=== PATIENT | male | born 1945 | race Caucasian/White ===

== ENCOUNTER 2017-05-05 12:19 | Inpatient (IN) ==
--- NOTE | 2017-05-05 09:59 | Discharge Summary ---
Date of Encounter: 05/08/17 Time of Encounter: 07:31 - Discharge Diagnosis (1) Arthritis of right knee Priority: Primary Status: Chronic (2) Hypertension Priority: Secondary Status: Chronic Qualifiers: Hypertension type: unspecified Qualified Code(s): I10 - Essential (primary ) hypertension (3) Hyperlipidemia Priority: Secondary Status: Chronic Qualifiers: Hyperlipidemia type: unspecified Qualified Code(s): E78.5 - Hyperlipidemia , unspecified - Discharge Medications Home Medications: Aspirin Enteric Coated [Aspirin EC] 325 mg PO BID #20 tablet.dr 05/05/17 [Rx] Atorvastatin [Lipitor] 40 mg PO HS 05/05/17 [History] Carvedilol [Coreg] 6.25 mg PO BID 05/05/17 [History] Ergocalciferol (VITAMIN D2) [Vitamin D] 400 unit PO DAILY 05/05/17 [History] Lisinopril-HCTZ 20-12.5 [Prinzide 20-12.5] 1 tab PO DAILY 05/05/17 [History] OxyCODONE Immed Rel [Roxicodone 5 MG] 5 mg PO Q4HR PRN #24 tablet 05/05/17 [Rx] cloNIDine HCl [CloNIDine HCl] 0.2 mg PO HS 05/05/17 [History] Allergies/Adverse Reactions: 3 Allergy/AdvReac Type Severity Reaction Status Date / Time No Known Allergies Allergy Verified 05/05/17 12:51 Primary care physician: Mann Gore - Patient Status Disposition: Home, Self-Care Condition: Good Functional capacity at discharge: uses cane/walker Overall status at discharge: patient is progressing back to baseline - Discharge Instructions Follow Up With: Joanna Marie PAC [Physician Rivet Machine Operator] - 05/12/17 11:15 am Mann Gore DO [Primary Care Provider] - Additional Instructions: Discharge Instructions: Total Knee Replacement Please call [facility] ([phone]), your Primary Care Physician, or report to the Emergency Room if you have any of the following symptoms: Nausea, vomiting, fever greater that 101.5, swelling, chest pain, shortness of breath, increased pain/redness/drainage/odor for your incision site, numbness/ tingling, or any other concerning symptoms. ACTIVITY:Weight-bearing as tolerated. You may progress off support (crutches or walker) as tolerated. MEDICATIONS: Upon discharge resume your home medications. Take all the medications as prescribed. Take a stool softener if taking narcotic pain medications. Stool softeners are only effective if you drink enough fluids. Drink 6-8 glass of water or fluids a day, unless this is not allowed for another health problem. Despite using stool softeners, if you haven't had a bowel movement in 3 days, please switch to a gentle laxative. Gentle laxatives are sold over the counter. You should have a bowel movement within 24 hours, if not call the office. You will be discharged from the hospital with a prescription for pain medication. You are encouraged to decrease the use of narcotic pain medication as tolerated. Should you require a refill, please call the office. [facility] prescribes narcotic pain medication for only 4-6 weeks after surgery. If you require pain medication beyond this time period, you may be referred to your Primary Care Physician or to the Pain Clinic for further evaluation. Plan ahead for refills on pain medication as many narcotics either need to be picked up at the office or mailed. It is best to call 48-72 hours in advance of needing a prescription refill so you don't run out of medication. To help control the post-operative pain, you may take NSAIDs (Aleve,Advil, Motrin, Ibuprofen, Naprosyn) or Tylenol as prescribed on the bottle in addition to the pain medication. ANTICOAGULATION (blood thinners): Continue your Aspirin, Lovenox or Coumadin as prescribed to help prevent a blood clot in the leg or in the lungs. As long as your incision remains dry and you tolerate the NSAIDs (Aleve, Advil, Motrin, ibuprofen, naprosyn), it is OK to use the NSAIDS while you are taking your anticoagulation medication. Should your incision start to drain, stop the NSAID and contact our office. Common symptoms of blood clot in the legs include: localized pain, swelling, calf tenderness, redness or discoloration of the skin. Blood clot in the lung symptoms include: shortness of breath, rapid pulse, sweating, and chest pain that worsens with deep breathing, coughing up blood, lightheadedness, feelings of anxiety. If you experience any of these symptoms notify your physician immediately, go to the emergency room, or if having trouble breathing, call [phone]. WOUND CARE: Leave the dressing on for 7 to 10days. You may change the dressing if it becomes saturated greater than 50%. Do not get the dressing wet at anytime. Wash your hands with antibacterial soap, rinse and dry prior to any wound care. If you have virginia the visiting nurse or rehab facility can remove the stapes 10-14 days after surgery and place steri-strips across the wound. Leave the steri-strips in place until they fall off on their won. You may let water from the shower run on top of the steri-strips. If you do not have a visiting nurse or rehab facility, you will need to return to the office at 10-14 days for the virginia to be removed. If you have itching or redness around the dressing call the office. FOLLOW-UP: Please follow up with your surgeon in the orthopedic clinic in 4 weeks from the day of surgery. If you have virginia that need to be removed, you will need to come back to the office in 10-14 days from the day of surgery. - Hospital Course Hospital course: Mr. Barajas is a 71 year old male Status post right total knee replacement. Patient discharged on May 07.The patient had an uneventful postoperative course. They received antibiotics and physical therapy and were discharged in stable condition. There will follow-up in the office in 2 weeks. - Time Spent with Patient Total time spent providing and/or coordinating discharge services:
[2017-05-05] MEDS ORDERED: Lidocaine -MPF 1% 2 ML VIAL ID ONE (12:37)
[2017-05-05] MEDS ORDERED: CeFAZolin Syr 2,000MG/20 ML 2,000 MG/20 ML SYRINGE IVPB ONE (12:37)
[2017-05-05] MEDS ORDERED: Plasma-Lyte A (PH 7.4) 1,000 ML IVC SCH (12:45)
[2017-05-05] MEDS ORDERED: Famotidine 20 MG/2 ML VIAL IVP ONE (12:51)
[2017-05-05] MEDS ORDERED: *HR* Promethazine 25 MG/ML VIAL IVP PRN (12:51)
[2017-05-05] MEDS ORDERED: *HR* Labetalol 20 MG/4 ML SYRINGE IVP PRN (12:51)
[2017-05-05] MEDS ORDERED: Metoclopramide 10 MG/2 ML VIAL IVP ONE (12:51)
[2017-05-05] MEDS ORDERED: Gabapentin 300 MG CAPSULE PO STA (12:52)
[2017-05-05] MEDS ORDERED: Acetaminophen IV 1,000 MG/100 ML INFUS..BTL IVPB ONE (12:52)
--- NOTE | 2017-05-05 12:56 | Anesthesia Evaluation PreOp ---
Date of Encounter: 05/05/17 Time of Encounter: 12:54 - Past History Planned Operation: R-TKR Cardiac History: HTN (maintained on Lisinopril-Hctz, Carvedilol, Clonidine), Hyperlipidemia (maintained on Lipitor, Atorvastatin), Other (ECHO 05/03/2017 - Impressions: LVEF 55%. Atypical septal motion consistent with bundle branch block. Mild left ventricular diastolic dysfunction. Normal right ventricular structure and function. Mild tricuspid regurgitation. No pulmonary hypertension. Left Ventricular Wall Motion: Rest Echo Findings The mid anterior septal, mid inferior lateral, basal anterior septal and basal inferior lateral stevens were not visualized. All other wall segments showed normal motion. NUCLEAR STRESS 05/03/2017 Impression: No perfusion evidence for ischemia or infarct. Mild to moderate fixed perfusion defect involving the basal to distal inferior wall and apex. Wall motion is normal. Findings represent artifact. Pharmacologic stress ECG is negative for ischemia at level of heart rate achieved. Gated EF = 69%.) Pulmonary History: Denies Any Significant HX JUDGE'S CLERK History: Denies Any Significant HX Other Medical History: Denies Any Significant HX, Renal Anesthesia History: No Prior Anesthetic Complications, Past Anesthesia (Inner ear surgery s/p [place] injury, knee scope), Problems (PONV) Alcohol Use: none Drug use: none Medications and Allergies Aspirin Enteric Coated [Aspirin EC] 325 mg PO BID #20 tablet. 05/05/17 [Rx] Atorvastatin [Lipitor] 40 mg PO HS 05/05/17 [History] Carvedilol [Coreg] 6.25 mg PO BID 05/05/17 [History] Ergocalciferol (VITAMIN D2) [Vitamin D] 400 unit PO DAILY 05/05/17 [History] Lisinopril-HCTZ 20-12.5 [Prinzide 20-12.5] 1 tab PO DAILY 05/05/17 [History] OxyCODONE Immed Rel [Roxicodone 5 MG] 5 mg PO Q4HR PRN #24 tablet 05/05/17 [Rx] cloNIDine HCl [CloNIDine HCl] 0.2 mg PO HS 05/05/17 [History] 3 Allergy/AdvReac Type Severity Reaction Status Date / Time No Known Allergies Allergy Verified 05/05/17 12:51 - Meds/Allergy Pre-op Review Medications Reviewed: Yes Allergies Reviewed: Yes Beta Blockers on Current Med List: Yes (CArvedilol) If Beta Blockers taken, Date/Time (Last Dose taken): 05/05/2017 @ 1000 Anesthesia Results - Labs Laboratory Tests 04/24/17 04/24/17 04/24/17 13:07 13:07 13:07 WBC 4.2 L Hgb 15.0 Hct 43.9 Plt Count 222 PT 11.2 INR 1.0 APTT 38.4 H Sodium 140 Potassium 4.6 H Chloride 104 Carbon Dioxide 29 BUN 15 Creatinine 0.93 Est GFR (Non-Af Amer) > 60 Latex Allergen IgE Ab 04/24/17 13:07 WBC Hgb Hct Plt Count PT INR APTT Sodium Potassium Chloride Carbon Dioxide BUN Creatinine Est GFR (Non-Af Amer) Latex Allergen IgE Ab <0.10 - Imaging EKG: image reviewed (66bpm SR w/ 1st degree aV Block. LBBB) Anesthesia Exam O2 Sat Height 1.78 m Height 1.78 m Weight 87.543 kg Weight 87.543 kg O2 Sat by Pulse Oximetry 99 Vital Signs Temp Pulse Resp BP Pulse Ox 97.6 F 66 18 146/83 99 05/05/17 12:49 05/05/17 12:49 05/05/17 12:49 05/05/17 12:49 05/05/17 12:49 Height: 5'10" Weight: 193# BMI = 28 NPO (# of Hours): MNOc - HEENT Pupil (Motor): Pupils equal, EOMI Mallampati: II Teeth: Normal Oral Opening: Greater than 3 - JUDGE'S CLERK LOC: Oriented JUDGE'S CLERK Motor: Normal RUE, Normal LUE, Normal RLE, Normal LLE, Normal Face JUDGE'S CLERK Sensory: Normal: RUE, LUE, RLE, LLE, Face - Cardiac Rhythm: Regular Murmur: None - Pulmonary Breath Sounds: bilateral Clear Respiratory Effort: Symmetrical Anesthesia Assess/Plan ASA Score: 2 Modified [place] Scale for Level of Consciousness: Cooperative, oriented, and tranquil Anesthetic Plan: General, Regional Monitoring Plan: Standard Monitors Recovery Plan: PACU Anes Supervising Prov Stmt: Pt seen/evaluated, R&B discussed, questions answered and consent obtained. Darius Allen MD
--- NOTE | 2017-05-05 13:45 | History & Physical Report ---
Date of Encounter: 05/05/17 Time of Encounter: 13:44 24 Hour HP Update - Instructions Instructions: If the History and Physical is less than 30 days old and was completed prior to A.M. admission and or procedure and has NOT been updated on calendar day of procedure please complete this update prior to performing procedure. - Update Patient reports changes in Medical Condition: No Changes in examination, assessment, or condition: No Changes in Medication: No Preop tests/diagnostics Reviewed: Yes Surgery Remains Indicated: Yes Consent for Planned Operative Procedure(s) Verified: Yes - Pre-Operative Checklist Preoperative Checklist Indicated: No Prophylactic Antibiotic Ordered: Yes Is VTE Prophylaxis Indicated?: Yes
[2017-05-05] MEDS ORDERED: ROPIVACAINE HCL/PF 0.5% 30 ML VIAL ONE (14:03)
[2017-05-05] MEDS ORDERED: Bupivacaine/Clonidine Syringe 1 EACH SYRINGE ONE (14:06)
[2017-05-05] MEDS ORDERED: *HR* FentaNYL (PF) 100 MCG/2 ML VIAL ONE (14:08)
[2017-05-05] MEDS ORDERED: *HR* Midazolam HCl 2 MG/2 ML VIAL ONE (14:09)
[2017-05-05] MEDS ORDERED: Dexamethasone 4 MG/ML VIAL ONE (14:09)
[2017-05-05] MEDS ORDERED: *HR* Propofol 200 MG/20 ML VIAL IVP ONE (14:26)
--- NOTE | 2017-05-05 14:44 | Anesthesia Procedures ---
Date of Encounter: 05/05/17 Time of Encounter: 14:10 Procedures: Anesthesia - Nerve Block Procedure Date: 05/05/17 Time: 14:10 Allergies/Adv Reactions: NKDA Surgical Procedure: R-TKR Checklist: Correct Patient Identifier, Correct procedure Correct side: Right Blood Thinner: No Monitor Applied: BP, Pulse Oximetry Supplemental Oxygen via Nasal Cannula (L/min): 2 Sedation: Versed (mg): 4 Sedation: Fentanyl (mcg): 100 Indication: Post Op Analgesia Pre-op Neuro Deficits: No Block Type: Femoral ( & IPAC) Catheter placed: No Sterile Technique: Yes Ultrasound used: Yes Anatomy identified: Yes Visual spread of Local: Yes Neuro Stimulation: Yes Nerve Stimulator Range: 0.2 - 0.4 mA Blood on Needle Aspiration: No Smooth Injection of Local: Yes Pain with Injection of Local: No Prep: Chlorhexadine Needle: 22 x 50 mm Stimuplex Local: 0.25% Bupivicaine w/Clonidine 20 mcg/cc (20mL for IPAC - performed by SAAD Rey), Ropivacaine (30mL + Decadron 8mg for Femoral Nerve Block) Volume (cc): 30mL Femoral & IPAC 20mL Number of Attempts: 1 Complications: None/effective block Vitals: Vital Signs/O2 Sat/Glucose, Most Current Temp Pulse Resp BP Pulse Ox 05/05/17 14:10 78 17 146/86 98 14:30 72 16 120/82 97 2 Anes Supervising Prov Stmt: PT tolerated procedure well and without immediate complication. Darius Allen MD
--- NOTE | 2017-05-05 14:49 | Orthopedic Operative Note ---
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 1 6.5 screw, 39+4 glenosphere, 7 humeral stem, poly insert 3 constrained Exam Under anesthesia: Restricted range of motion all planes Procedural Notes: Operative procedure: The patient was brought to the operating room and placed on the operating room table. After general anesthesia was administered the operative shoulder was examined. Findings were noted. The patient was placed in the modified beachchair position. All pressure points were padded appropriately. And the head was stabilized in the neutral position. The operative extremity was prepped and draped in the sterile surgical fashion. The patient received IV antibiotics prior to skin incision. A standard deltopectoral approach was made to the operative shoulder. Incision was made to the skin and subcutaneous tissue,hemo stasis was obtained with Bovie cautery. Using careful blunt dissection the cephalic vein was identified and mobilized medially. The deltopectoral interval was developed and the clavipectoral fascia was incised. Patient noted to have a large posterior superior defect with the greater tuberosity fractured from. Attempt was made to identify the displaced greater tuberosity fracture. This was retracted posteriorly to the level of the glenoid. It was non-mobile. Attention was then turned to the reverse shoulder replacement. The subscap was released off the lesser tuberosity and tagged with #2 FiberWire suture. The subscap was irreparable. The humerus was dislocated patient noted to have irreparable tear supraspinatus tendon, and the humeral cut was made along the anatomic neck. Anterior and posterior Bankart retractors were placed to expose the glenoid. The glenoid guide was seated and the centering hole was made. It was reamed with the appropriate reamer. The small baseplate was seated and secured with ( 2) 4.5 screws and one 6.5 screw. The baseplate was irrigated and dried and the real +4 Glenosphere was seated and secured with the Gloria taper. The Gloria taper was tested and found to be secure the humerus was redislocated and prepared with the diaphyseal reamers, followed by a broaching process up to the appropriate size 7 in the patient's anatomic version. The metaphyseal reamer was then utilized. Trial reduction found the shoulder to be relocatable. Trial components were removed and the appropriate 7 stem was impacted in place in the patient's anatomic version. Trial reduction found the shoulder to be relocatable and stable with the appropriate 3 constrained Trial component was removed and the real implant was seated and secured the shoulder was reduced. The shoulder had excellent motion and excellent stability and no evidence of dislocation. The deep tissue was irrigated with pulse irrigation. The deltopectoral interval was closed with a running #1 PDS suture, subcutaneous tissue was irrigated and closed with 0 PDS suture, the skin was closed with Dermabond. The patient was placed in a sterile dressing, abduction brace and extubated. The patient was then transferred to the recovery room in stable condition. Anesthesia: KIMBERLYA Surgeon: Valdez Cabrales Condition: stable Disposition: PACU
[2017-05-05] MEDS ORDERED: Ethanol\\Acetic Acid\\Na Ace\\Ben 1,000 ML IRRIG.SOLN IR ONE (14:59)
--- NOTE | 2017-05-05 16:23 | Orthopedic Operative Note ---
Date of procedure: 05/05/17 Pre-op diagnosis: Right knee arthritis Post-op diagnosis: same Procedure: Procedure: right Total knee replacement Estimated blood loss: 200 cc Hardware: Metal and polyethylene replacement. Arthrex Femur:7 Tibia: 6 PS insert: 14 Patella:37 Exam Under anesthesia: Full flexion and extension no instability Valgus alignment Procedural Notes: grade 4 arthritic changes patellofemoral joint, grade 3 arthritic changes lateral compartment. Operative procedure: The patient was brought to the operating room and placed on the operating room table. After general anesthesia was administered the operative knee was examined. Findings were noted in the exam under anesthesia. The operative extremity was prepped and draped in sterile surgical fashion. The patient received IV antibiotics prior to skin incision. A standard midline incision was made centered over the patella. The incision was made through the skin and subcutaneous tissue. A medial parapatellar tendon approach was performed. Care was taken to preserve tissue along the medial aspect of the patella. And to protect the patella tendon. The deep MCL was released off the medial tibia. The infra patella fat pad was excised. Knee was brought into flexion. patient noted to have grade 4 arthritic changes patellofemoral joint and grade 3 arthritic changes lateral compartment. The entry hole was made for the intramedullary femoral guide. The guide was seated in 6 degrees of valgus. Anterior cut was made followed by the distal cut. The ACL the PCL the medial and the lateral menisci were excised. The tibia was subluxed forward. The entry hole was made for the intramedullary tibial guide. Guide was seated to resect 2 mm off the more abnormal side. The knee was brought into flexion the distal femur was sized to a 7 . The femoral guide was seated, the anterior cut was made followed by the posterior condylar cut, followed by the chamfer cuts. The finishing guide was seated the box cut was made and the lug holes were drilled. The tibia was sizedto 6 , the tibial tray was seated and prepared with the large drill followed by the fin cutter. Trial reduction revealed full extension no varus valgus instability with the appropriate 14 PS Bebe. The patella was everted and cut was made at the level of the insertion of the quadriceps and patella tendon. The patella was sized 237 the guide was seated and the lug holes are drilled. Trial reduction revealed excellent patella tracking. All trial components were removed all bony surfaces were irrigated. The tibia was cemented first followed by the femur. the 14 PS Bebe was seated and the knee was brought into full extension. The patella was cemented and held in place with the patellar holding clamp. After the cement had hardened, the knee sat for 2 minutes with a Betadine saline solution. The knee was then irrigated out with 2 L of pulse irrigation. The extensor mechanism was closed with #2 FiberWire suture and #2 PDS suture. The subcutaneous tissue was then irrigated and closed deep with #1 PDS suture superficially with 0 PDS suture and skin was closed with skin virginia. The patient was then placed in a sterile dressing and a postoperative brace extubated and transferred to recovery room in stable condition. Anesthesia: GHAZAL Surgeon: Valdez Cabrales Condition: stable Disposition: PACU
[2017-05-05] MEDS: *HR* HYDROmorphone (PF) 1 MG/ML SYRINGE IVP PRN ×4 (16:40→17:12)
[2017-05-05 16:54] LABS: Hematocrit 39.2 % (37.5-50.1); Hemoglobin 13.4 g/dL (12.9-16.9)
--- NOTE | 2017-05-05 17:19 | Anesthesia Evaluation Post Op ---
Date of Encounter: 05/05/17 Time of Encounter: 17:20 - Vital Signs Vital Signs: Vital Signs - Last 8 Hours Temp Pulse Resp BP Pulse Ox 05/05/17 17:06 63 16 154/89 98 05/05/17 16:56 97.7 F 80 18 154/84 98 05/05/17 16:46 83 18 151/75 98 05/05/17 16:36 88 18 116/87 96 05/05/17 16:26 98.3 F 92 16 98/66 93 05/05/17 14:49 79 15 119/74 98 05/05/17 14:10 78 17 146/86 98 05/05/17 12:49 97.6 F 66 18 146/83 99 Intake and Output 05/05/17 05/05/17 05/05/17 07:59 15:59 23:59 Output Total 200 / 200 Balance -200 / -200 Output: Urine 0 / 0 Estimated Blood Loss 200 / 200 Other: Weight 87.543 kg Patient Weight 05/05/17 23:59 Weight 87.543 kg - Lungs Lungs: Clear Ascult./Percussion - Airway Airway: Non-obstructed - Cardiovascular Regular Rate, Baseline Rhythm - Mental Status Mental Status: Alert & Oriented, Answers Appropriately - Pain Pain Scale: 5 (TOERABLE WITH PAIN MEDS ) Pain Scale used: Numeric (1 - 10) - Nausea Vomiting Nausea Vomiting: Not Present - Hydration Hydration: Tolerates oral liquids - Discharge PostOp Status: Transfer Patient to floor
[2017-05-05] MEDS ORDERED: Sennosides 8.6 MG TABLET PO PRN (17:39)
[2017-05-05] MEDS ORDERED: MOM Conc 10 ML UD.LIQ PO PRN (17:39)
[2017-05-05] MEDS ORDERED: *HR* OxyCODONE Immed Rel 5 MG TABLET PO PRN (17:39)
[2017-05-05] MEDS ORDERED: Naloxone 0.4 MG/ML INJ IVP PRN (17:39)
[2017-05-05] MEDS ORDERED: *HR* HYDROmorphone (PF) 1 MG/ML SYRINGE IVP PRN (17:39)
[2017-05-05] MEDS ORDERED: Ringers Solution, Lactated 1,000 ML IVC SCH (17:39)
[2017-05-05] MEDS ORDERED: *HR* Enoxaparin 30 MG/0.3 ML SYRINGE SQ SCH (18:00)
[2017-05-05] MEDS: *HR* OxyCODONE Immed Rel 5 MG TABLET PO PRN ×2 (18:08→22:08)
[2017-05-05] MEDS: *HR* Enoxaparin 30 MG/0.3 ML SYRINGE SQ SCH (18:09)
[2017-05-05] MEDS: cloNIDine HCl 0.1 MG TABLET PO SCH (20:11)
[2017-05-05] MEDS: Temazepam 15 MG CAPSULE PO PRN (20:11)
[2017-05-05] MEDS: Ondansetron 4 MG/2 ML VIAL IVP PRN (20:25)
[2017-05-05] MEDS: CeFAZolin Premix DUPLEX 2,000 MG/50 ML BAG IVPB SCH (23:39)
[2017-05-06] MEDS: *HR* OxyCODONE Immed Rel 5 MG TABLET PO PRN ×6 (02:09→22:34)
[2017-05-06] MEDS: Ondansetron 4 MG/2 ML VIAL IVP PRN ×2 (02:29→08:46)
[2017-05-06 04:00] LABS: Hematocrit 38.2 % (37.5-50.1); Hemoglobin 13.2 g/dL (12.9-16.9)
[2017-05-06 04:10] LABS: BUN/Creatinine Ratio 15 (6-26); Blood Urea Nitrogen 16 mg/dL (8-26); Calcium 8.9 mg/dL (8.6-10.8); Carbon Dioxide 25 mEq/L (19-29); Chloride 103 mEq/L (98-109); Glucose 152 mg/dL (70-99); Osmolality,Calculated 290 (280-300); Potassium 4.2 mEq/L (3.5-4.5); Sodium 138 mEq/L (136-145); eGFR For African Americans > 60 (> 60); eGFR For Non-African Americans > 60 (> 60)
[2017-05-06] MEDS: CeFAZolin Premix DUPLEX 2,000 MG/50 ML BAG IVPB SCH (06:10)
[2017-05-06] MEDS: *HR* Enoxaparin 30 MG/0.3 ML SYRINGE SQ SCH ×2 (06:11→17:28)
[2017-05-06] MEDS: Lisinopril-HCTZ 20-12.5mg TABLET PO SCH (08:46)
[2017-05-06] MEDS: Cholecalciferol (D-3) 1,000 UNIT TABLET PO SCH (08:46)
--- NOTE | 2017-05-06 10:17 | Orthopedics Progress Note ---
Date of Encounter: 05/06/17 Time of Encounter: 10:16 Subjective Interval history: Patient was seen this morning doing well without complaints. Afebrile vital signs stable. Operative extremity: Neurovascularly intact Dressing clean intact, minimal bloody drainage Calves nontender Assessment and plan: Family wish to try oral anti-inflammatories and therefore I did add naproxen as needed. Continue with postoperative care Objective Vital signs: Vital Signs Temp Pulse Resp BP Pulse Ox 05/06/17 06:49 97.8 F 92 14 128/67 92 05/06/17 05:21 98.2 F 87 16 130/82 97 05/05/17 22:50 97.7 F 96 17 124/85 96 05/05/17 21:16 97.9 F 96 15 122/89 93 05/05/17 19:58 98.6 F 96 16 170/101 96 05/05/17 18:35 98.6 F 96 16 159/84 94 05/05/17 18:09 98.6 F 92 15 150/84 96 05/05/17 17:41 98.6 F 88 15 166/99 96 05/05/17 17:26 97.6 F 88 16 134/89 95 05/05/17 17:16 89 16 144/88 98 05/05/17 17:06 63 16 154/89 98 05/05/17 16:56 97.7 F 80 18 154/84 98 05/05/17 16:46 83 18 151/75 98 05/05/17 16:36 88 18 116/87 96 05/05/17 16:26 98.3 F 92 16 98/66 93 05/05/17 14:49 79 15 119/74 98 05/05/17 14:10 78 17 146/86 98 05/05/17 12:49 97.6 F 66 18 146/83 99 Intake and Output 05/05/17 05/06/17 05/06/17 23:59 07:59 15:59 Intake Total 50 / 50 Output Total 200 / 200 350 / 350 Balance -200 / -200 -300 / -300 Intake: IV Fluids 50 / 50 Ancef Premix DUPLEX 2,000 mg In 50 / 50 50 ml @ 100 mls/hr IVPB Q8H GAURANG Rx#:[id number] Output: Urine 0 / 0 350 / 350 Estimated Blood Loss 200 / 200 - Labs CBC & BMP: 05/06/17 03:34 05/06/17 03:34 Labs: Abnormal lab results Glucose 152 mg/dL (70-99) H 05/06/17 03:34 - VTE Documentation of Mechanical Device: Venous foot pump, device Consult Discharge Plan - Plan Referrals: Mann Gore DO [Primary Care Provider] -
[2017-05-06] MEDS ORDERED: Naloxone 0.4 MG/ML INJ IVP PRN (15:41)
[2017-05-06] MEDS ORDERED: Ketorolac 30 MG/ML VIAL IM SCH (18:00)
[2017-05-06] MEDS: cloNIDine HCl 0.1 MG TABLET PO SCH (21:16)
[2017-05-06] MEDS: Temazepam 15 MG CAPSULE PO PRN (21:16)
[2017-05-07] MEDS ORDERED: Ketorolac 30 MG/ML VIAL IVP SCH (00:28)
[2017-05-07] MEDS: Ketorolac 30 MG/ML VIAL IVP SCH ×3 (00:38→11:51)
[2017-05-07] MEDS: Temazepam 15 MG CAPSULE PO PRN (00:42)
[2017-05-07] MEDS: *HR* OxyCODONE Immed Rel 5 MG TABLET PO PRN ×3 (02:23→11:51)
[2017-05-07] MEDS: *HR* Enoxaparin 30 MG/0.3 ML SYRINGE SQ SCH (05:41)
[2017-05-07 06:47] LABS: Hematocrit 29.9 % (37.5-50.1)
[2017-05-07 06:48] LABS: Hemoglobin 10.4 g/dL (12.9-16.9)
[2017-05-07 07:01] LABS: BUN/Creatinine Ratio 18 (6-26); Blood Urea Nitrogen 18 mg/dL (8-26); Calcium 8.5 mg/dL (8.6-10.8); Carbon Dioxide 27 mEq/L (19-29); Chloride 101 mEq/L (98-109); Glucose 110 mg/dL (70-99); Osmolality,Calculated 285 (280-300); Potassium 3.6 mEq/L (3.5-4.5); Sodium 136 mEq/L (136-145); eGFR For African Americans > 60 (> 60); eGFR For Non-African Americans > 60 (> 60)
[2017-05-07] MEDS: Cholecalciferol (D-3) 1,000 UNIT TABLET PO SCH (09:02)
[2017-05-07] MEDS: Lisinopril-HCTZ 20-12.5mg TABLET PO SCH (09:03)
--- NOTE | 2017-05-07 11:12 | Orthopedics Progress Note ---
Date of Encounter: 05/07/17 Time of Encounter: 11:11 Subjective Interval history: Patient was seen this morning doing well without complaints. Afebrile vital signs stable. Operative extremity: Neurovascularly intact Dressing clean intact, minimal bloody drainage Calves nontender Assessment and plan: Did well with toradol yesterday Continue with postoperative care Objective Vital signs: Vital Signs Temp Pulse Resp BP Pulse Ox 05/07/17 07:00 98 F 76 18 129/78 93 05/07/17 03:29 98.1 F 79 18 133/72 92 05/06/17 23:09 98.3 F 68 20 112/56 96 05/06/17 19:08 97.9 F 83 20 152/76 96 05/06/17 15:15 98.2 F 84 14 131/86 93 Intake and Output 05/07/17 05/07/17 05/07/17 00:59 07:59 15:59 Intake Total 240 / 240 Balance 240 / 240 Intake: Oral 240 / 240 Other: Meal Breakfast Percent of Meal Consumed 25% Weight Patient Weight 05/07/17 22:59 Weight 88.5 kg - Labs CBC & BMP: 05/07/17 06:37 05/07/17 06:37 Labs: Abnormal lab results Hgb 10.4 g/dL (12.9-16.9) L D 05/07/17 06:37 Hct 29.9 % (37.5-50.1) L 05/07/17 06:37 Glucose 110 mg/dL (70-99) H 05/07/17 06:37 Calcium 8.5 mg/dL (8.6-10.8) L 05/07/17 06:37 - VTE Documentation of Mechanical Device: Venous foot pump, device Consult Discharge Plan - Plan Referrals: Mann Gore DO [Primary Care Provider] -
[2017-05-07 11:50] VITALS: BP 163/74
== END 2017-05-07 12:55 | disposition home or self-care (01) | DRG 470 ==
LOC: SAMDAY 12:19 → 3NENU 17:39
PROVIDERS: ADMIT Orthopaedic Surgery; ATTEND Orthopaedic Surgery